=== PATIENT | male | born 1960 | race Caucasian/White ===

== ENCOUNTER → 2017-06-09 | Outpatient (CLI) | payer MEDICARE, OTHER ==
[~2017-06-09] MED LIST: GADOBUTROL 7.5 MMOL/7.5 ML VIAL IV
== END | disposition home or self-care (01) ==
LOC: MRI 11:19
DX: S43.432A Superior glenoid labrum lesion of left shoulder, initial encounter (principal); X58.XXXA Exposure to other specified factors, initial encounter; Y93.89 Activity, other specified; Y92.89 Other specified places as the place of occurrence of the external cause; Y99.8 Other external cause status
CPT/HCPCS: 73223

== ENCOUNTER → 2019-05-17 | Outpatient (CLI) | payer MEDICARE, OTHER ==
[2014-03-04 09:00] VITALS: BP 140/86
[~2019-05-17] MED LIST changes: -GADOBUTROL 7.5 MMOL/7.5 ML VIAL IV; +pain medicine
--- NOTE | 2019-05-17 15:59 | RAD ---
AP and Lateral Views of the Chest 05/17/2019 1:24 PM Indication: Chest pain, cough Comparison: Chest radiograph May 11, 2007 Findings: There is no focal consolidation or infiltrate identified. The cardiomediastinal silhouette is within normal limits. There is no evidence of pneumothorax or pleural effusion. No acute osseous abnormalities are identified. Impression: No evidence of acute cardiopulmonary process. Electronically signed by: Bertin Cardenas MD (05/17/2019 3:57 PM) [id number]
== END | disposition home or self-care (01) ==
LOC: RAD 12:58
PROVIDERS: ATTEND Family Medicine
DX: R05 Cough (principal); R07.9 Chest pain, unspecified
CPT/HCPCS: 71046